=== PATIENT | male | born 2000 | race Caucasian/White ===

== ENCOUNTER 2023-06-20 01:38 | Inpatient (IN) | payer MEDICAID ==
[~2023-06-20] VITALS: Ht 182.9 cm; Wt 95.3 kg
[2023-06-20] VITALS (7 sets, daily range): BP systolic 100–120; BP diastolic 43–61; PULSE 60–99; RESP 14–20; TEMP 97.7–98.2; O2SAT 95–100
[~2023-06-20 01:38] MED LIST: LORazepam 2 MG/ML VIAL IM STA
[2023-06-20 02:51] LABS: BASOPHILS % (AUTO) 0.7 % (0.0-2.0); EOSINOPHILS # (AUTO) 0.1 K/uL (0-0.4); EOSINOPHILS % (AUTO) 1.8 % (0.0-4.0); HEMOGLOBIN 10.7 g/dL (12.0-18.0); LYMPHOCYTES # (AUTO) 1.9 K/uL (2.0-11.5); LYMPHOCYTES % (AUTO) 26.6 % (20.5-51.1); MEAN CORPUSCULAR HEMOGLOBIN 22 pg (27-31); MEAN CORPUSCULAR HGB CONC 32 g/dL (33-37); MEAN CORPUSCULAR VOLUME 68.3 fL (80-94); MONOCYTES # (AUTO) 0.8 K/uL (0.8-1.0); MONOCYTES % (AUTO) 11.4 % (1.7-9.3); NEUTROPHILS # (AUTO) 4.2 K/uL (1.8-7.7); NEUTROPHILS % (AUTO) 59.5 % (42.2-75.2); PLATELET COUNT (AUTO) 256 K/uL (140-450); RED BLOOD CELL COUNT(AUTO) 4.99 MIL/uL (4.20-6.10)
[2023-06-20 03:11] LABS: ANION GAP 14.4 (8-16); CALCIUM 8.9 mg/dL (8.5-10.1); CARBON DIOXIDE 26.1 mmol/L (21-32); CREATININE 1.1 mg/dL (0.6-1.3); POTASSIUM 3.5 mmol/L (3.5-5.1)
[2023-06-20 03:18] LABS: ALCOHOL, BLOOD < 3 mg/dL (<10)
[2023-06-20] MEDS ORDERED: NACL 0.9% 2,000 ML IV ONE (03:45)
[2023-06-20 03:47] LABS: ACETAMINOPHEN < 0.5 ug/ml (10-30); SALICYLATE < 2.8 mg/dL (2.8-20.0)
[2023-06-20] MEDS ORDERED: AMMONIA AROMATIC 1 INHL INH ONE ×3 (05:39→06:02)
[2023-06-20] MEDS ORDERED: NACL 0.9% 1,000 ML IV ONE (07:30)
[2023-06-20 08:23] LABS: ALBUMIN 3.8 g/dL (3.4-5.0); BILIRUBIN,DIRECT 0.1 mg/dL (0.0-0.3); TOTAL BILIRUBIN 0.2 mg/dL (0.0-1.0); TOTAL PROTEIN, SERUM 7.7 g/dL (6.4-8.2)
[2023-06-20] MEDS ORDERED: LORazepam 2 MG/ML VIAL IVP SCH (09:30)
[2023-06-20] MEDS ORDERED: levETIRAcetam 1,000 MG in NACL 0.9% 100 ML IV ONE (09:45)
[2023-06-20] MEDS ORDERED: ACETAMINOPHEN 325 MG TAB PO PRN (12:45)
[2023-06-20] MEDS ORDERED: ONDANSETRON 4 MG/2 ML VIAL IVP PRN (12:45)
[2023-06-20] MEDS: NACL 0.9% 1,000 ML IV SCH (12:45)
[2023-06-20] MEDS ORDERED: POTASSIUM CHLORIDE 10 MEQ TABER PO PRN (12:45)
[2023-06-20] MEDS ORDERED: HYDROcodone/APAP 7.5/325 MG 1 TAB PO PRN (12:45)
[2023-06-20] MEDS ORDERED: MAG SULF 2000 MG/WATER PREMIX 50 ML IV PRN (12:45)
[2023-06-20] MEDS ORDERED: LORazepam 2 MG/ML VIAL IVP PRN (12:45)
[2023-06-20 15:12] LABS: AMYLASE 25 U/L (25-115); CHOL/HDL RATIO 2.7 (1-4.5); CHOLESTEROL 145 mg/dL (<200); FREE T4 (FREE THYROXINE) 1.31 ng/dL (0.76-1.46); HDL CHOLESTEROL 54 mg/dL (40-60); LDL (CALC) 73 mg/dL (60-100); LIPASE 85 U/L (73-393); MAGNESIUM 2.1 mg/dL (1.8-2.4); PHOSPHORUS 4.6 mg/dL (2.5-4.9); THYROID STIMULATING HORMONE 1.99 uIU/mL (0.34-3.74); TRIGLYCERIDES 92 mg/dL (30-150)
[2023-06-20 19:08] LABS: LACTIC ACID 1.6 mmol/L (0.4-2.0)
[2023-06-20 19:21] LABS: APPEARANCE,URINE CLEAR (CLEAR); BILIRUBIN,URINE NEGATIVE (NEGATIVE); BLOOD, URINE NEGATIVE (NEGATIVE); COLOR,URINE YELLOW (YELLOW); LEUKOCYTE ESTERASE ,URINE NEGATIVE (NEGATIVE); NITRITE, URINE NEGATIVE (NEGATIVE); PROTEIN,URINE NEGATIVE (NEGATIVE); UGLUCOSE NEGATIVE (NEGATIVE); UROBILINOGEN,URINE 0.2 EU/dL (0.2 - 1)
[2023-06-20 19:27] LABS: INR 1.05 (0.8-1.2); PARTIAL THROMBOPLASTIN TIME 25.7 secs (22-35.6)
[2023-06-20 19:29] LABS: AMPHETAMINE, URINE NEGATIVE ng/ml (NEG <=1000); BARBITURATE, URINE NEGATIVE ng/ml (NEG <=200); BENZODIAZEPINE, URINE POSITIVE ng/mL (NEG <=200); CANNABINOID, URINE NEGATIVE ng/mL (NEG <=50); COCAINE, URINE NEGATIVE ng/mL (NEG <=300); OPIATE, URINE NEGATIVE ng/mL (NEG <=2000); PHENCYCLIDINE SCREEN,URINE NEGATIVE ng/mL (NEG <=25)
[2023-06-20] MEDS: levETIRAcetam 500 MG in NACL 0.9% 100 ML IV SCH (20:19)
[2023-06-20] MEDS: DOCUSATE SODIUM 100 MG GELCAP PO SCH (20:21)
[2023-06-21] VITALS (7 sets, daily range): BP systolic 109–123; BP diastolic 46–76; PULSE 49–78; RESP 17–18; TEMP 97–98; O2SAT 96–100
[2023-06-21] MEDS: NACL 0.9% 1,000 ML IV SCH (08:45)
[2023-06-21] MEDS: levETIRAcetam 500 MG in NACL 0.9% 100 ML IV SCH (08:58)
[2023-06-21] MEDS: DOCUSATE SODIUM 100 MG GELCAP PO SCH (08:58)
[2023-06-21] MEDS ORDERED: PANTOPRAZOLE 40 MG INJ VIAL IVP SCH (09:00)
[2023-06-21 13:55] LABS: ANION GAP 12.7 (8-16); CALCIUM 9.2 mg/dL (8.5-10.1); POTASSIUM 3.7 mmol/L (3.5-5.1)
[2023-06-21 13:57] LABS: BASOPHILS % (AUTO) 0.7 % (0.0-2.0); EOSINOPHILS # (AUTO) 0.2 K/uL (0-0.4); EOSINOPHILS % (AUTO) 2.5 % (0.0-4.0); HEMOGLOBIN 10.8 g/dL (12.0-18.0); LYMPHOCYTES % (AUTO) 14.7 % (20.5-51.1); MEAN CORPUSCULAR HEMOGLOBIN 22 pg (27-31); MEAN CORPUSCULAR HGB CONC 32 g/dL (33-37); MEAN CORPUSCULAR VOLUME 67.9 fL (80-94); MONOCYTES # (AUTO) 0.6 K/uL (0.8-1.0); MONOCYTES % (AUTO) 8.1 % (1.7-9.3); NEUTROPHILS # (AUTO) 5.1 K/uL (1.8-7.7); PLATELET COUNT (AUTO) 248 K/uL (140-450); RED BLOOD CELL COUNT(AUTO) 5.02 MIL/uL (4.20-6.10); RED CELL DISTRIBUTION WIDTH 17.9 % (11.6-13.7); WHITE BLOOD COUNT (AUTO) 6.9 K/uL (4.8-10.8)
[2023-06-21] MEDS ORDERED: KEP500 PO (13:58)
[2023-06-21 14:00] LABS: MAGNESIUM 1.9 mg/dL (1.8-2.4); PHOSPHORUS 2.8 mg/dL (2.5-4.9)
[2023-06-21] MEDS ORDERED: LACT-85 PO (14:02)
[2023-06-21] MEDS ORDERED: LACTULOSE 20 GM/30 ML UDC PO SCH (14:04)
== END 2023-06-21 16:20 | disposition home or self-care (01) | DRG 53 ==
LOC: MED 01:38 → EDBD 07:29 → MTU 07:29
PROC: 5A09357 Assistance with Respiratory Ventilation, Less than 24 Consecutive Hours, Continuous Positive Airway Pressure (ICD-10-PCS; principal; 2023-06-20)
DX: G40.409 Other generalized epilepsy and epileptic syndromes, not intractable, without status epilepticus (principal); J96.00 Acute respiratory failure, unspecified whether with hypoxia or hypercapnia; G04.81 Other encephalitis and encephalomyelitis; K76.82 Hepatic encephalopathy; D50.9 Iron deficiency anemia, unspecified; F43.10 Post-traumatic stress disorder, unspecified; Z88.8 Allergy status to other drugs, medicaments and biological substances; Z79.899 Other long term (current) drug therapy
CPT/HCPCS: 36415; 70450; 71045; 80048; 80076; 80305; 81003; 82140; 82150; 83036; 83605; 83690; 83735; 83880; 84100; 84146; 84439; 84443; 84484; 85025; 85610; 85730; 87081; 93005; 94660; 96360; 96372; 99285; C9113; G0480; G0482; J1953; J2060; Q0092

== ENCOUNTER 2023-08-24 01:30 | Emergency (ER) | payer MEDICAID ==
[~2023-08-24] VITALS: Ht 175.3 cm; Wt 102.5 kg
[~2023-08-24 01:30] MED LIST changes: +KEP500 PO; +LACT-85 PO; -LORazepam 2 MG/ML VIAL IM STA
[2023-08-24 01:43] VITALS: BP 123/68; PULSE 94; RESP 20; TEMP 98; O2SAT 98
[2023-08-24 03:03] VITALS: O2SAT 98
[2023-08-24 04:07] LABS: BASOPHILS # (AUTO) 0.1 K/uL (0.00-0.22); BASOPHILS % (AUTO) 0.7 % (0.0-2.0); EOSINOPHILS # (AUTO) 0.3 K/uL (0-0.4); EOSINOPHILS % (AUTO) 3.3 % (0.0-4.0); HEMATOCRIT 34.3 % (36-52); HEMOGLOBIN 10.6 g/dL (12.0-18.0); LYMPHOCYTES % (AUTO) 22.3 % (20.5-51.1); MEAN CORPUSCULAR HEMOGLOBIN 22 pg (27-31); MEAN CORPUSCULAR HGB CONC 31 g/dL (33-37); MEAN CORPUSCULAR VOLUME 72.5 fL (80-94); MONOCYTES # (AUTO) 1.1 K/uL (0.8-1.0); MONOCYTES % (AUTO) 12.1 % (1.7-9.3); NEUTROPHILS # (AUTO) 5.7 K/uL (1.8-7.7); NEUTROPHILS % (AUTO) 61.6 % (42.2-75.2); PLATELET COUNT (AUTO) 283 K/uL (140-450); RED BLOOD CELL COUNT(AUTO) 4.74 MIL/uL (4.20-6.10); RED CELL DISTRIBUTION WIDTH 18.9 % (11.6-13.7); WHITE BLOOD COUNT (AUTO) 9.2 K/uL (4.8-10.8)
[2023-08-24 04:09] LABS: ANION GAP 13.4 (8-16); CALCIUM 8.8 mg/dL (8.5-10.1); CARBON DIOXIDE 25.8 mmol/L (21-32); CREATININE 0.9 mg/dL (0.6-1.3); POTASSIUM 4.2 mmol/L (3.5-5.1)
[2023-08-24 06:16] LABS: AMPHETAMINE, URINE NEGATIVE ng/ml (NEG <=1000); BARBITURATE, URINE POSITIVE ng/ml (NEG <=200); BENZODIAZEPINE, URINE POSITIVE ng/mL (NEG <=200); CANNABINOID, URINE NEGATIVE ng/mL (NEG <=50); COCAINE, URINE NEGATIVE ng/mL (NEG <=300); OPIATE, URINE NEGATIVE ng/mL (NEG <=2000); PHENCYCLIDINE SCREEN,URINE NEGATIVE ng/mL (NEG <=25)
== END 2023-08-24 06:45 | disposition home or self-care (01) ==
LOC: MED 01:30
DX: S70.12XA Contusion of left thigh, initial encounter (principal); R56.9 Unspecified convulsions; Z79.899 Other long term (current) drug therapy; Z88.8 Allergy status to other drugs, medicaments and biological substances; X58.XXXA Exposure to other specified factors, initial encounter; Y92.89 Other specified places as the place of occurrence of the external cause; Y93.89 Activity, other specified; Y99.8 Other external cause status
CPT/HCPCS: 36415; 70450; 80048; 80305; 85025; 99284; G0482

== ENCOUNTER 2023-09-09 13:38 | Emergency (ER) | payer MEDICAID ==
[~2023-09-09] VITALS: Ht 177.8 cm; Wt 105.2 kg
[2023-09-09 14:06] VITALS: BP 113/55; PULSE 79; RESP 17; TEMP 97.4; O2SAT 98
[2023-09-09 17:22] LABS: INR 1.02 (0.8-1.2); PARTIAL THROMBOPLASTIN TIME 26.1 secs (22-35.6); PROTHROMBIN TIME 10.7 secs (10.8-13.4)
[2023-09-09 17:26] LABS: ALANINE AMINOTRANSFERASE 57 U/L (12-78); ALBUMIN 3.8 g/dL (3.4-5.0); ALKALINE PHOSPHATASE 92 U/L (50-136); ASPARTATE AMINOTRANSFERASE 28 U/L (15-37); CHLORIDE 102 mmol/L (98-107); CREATININE 0.9 mg/dL (0.6-1.3); GFR ARICAN-AMERICAN 137 mL/min (>90); GFR NON ARICAN-AMERICAN 113 mL/min (>90); GLUCOSE 83 mg/dL (74-106); SODIUM SERUM 137 mmol/L (136-145); TOTAL BILIRUBIN 0.1 mg/dL (0.0-1.0); TOTAL PROTEIN, SERUM 7.9 g/dL (6.4-8.2); UREA NITROGEN, BLOOD 9 mg/dL (7-18)
[2023-09-09 18:38] LABS: BASOPHILS % (AUTO) 0.6 % (0.0-2.0); EOSINOPHILS # (AUTO) 0.2 K/uL (0-0.4); EOSINOPHILS % (AUTO) 2.5 % (0.0-4.0); HEMATOCRIT 37.3 % (36-52); HEMOGLOBIN 11.9 g/dL (12.0-18.0); LYMPHOCYTES # (AUTO) 1.8 K/uL (2.0-11.5); LYMPHOCYTES % (AUTO) 22.2 % (20.5-51.1); MEAN CORPUSCULAR HEMOGLOBIN 23 pg (27-31); MEAN CORPUSCULAR HGB CONC 32 g/dL (33-37); MEAN CORPUSCULAR VOLUME 70.6 fL (80-94); MONOCYTES % (AUTO) 11.9 % (1.7-9.3); NEUTROPHILS # (AUTO) 5.1 K/uL (1.8-7.7); NEUTROPHILS % (AUTO) 62.8 % (42.2-75.2); PLATELET COUNT (AUTO) 300 K/uL (140-450); RED BLOOD CELL COUNT(AUTO) 5.29 MIL/uL (4.20-6.10); RED CELL DISTRIBUTION WIDTH 17.4 % (11.6-13.7); WHITE BLOOD COUNT (AUTO) 8.1 K/uL (4.8-10.8)
[2023-09-09 22:00] LABS: APPEARANCE,URINE CLEAR (CLEAR); BILIRUBIN,URINE NEGATIVE (NEGATIVE); BLOOD, URINE NEGATIVE (NEGATIVE); COLOR,URINE YELLOW (YELLOW); LEUKOCYTE ESTERASE ,URINE NEGATIVE (NEGATIVE); NITRITE, URINE NEGATIVE (NEGATIVE); PH,URINE 7.5 (5.0-9.0); PROTEIN,URINE NEGATIVE (NEGATIVE); UGLUCOSE NEGATIVE (NEGATIVE); UROBILINOGEN,URINE 0.2 EU/dL (0.2 - 1)
[2023-09-09] MEDS ORDERED: ONDANSETRON 4 MG/2 ML VIAL IVP ONE (23:15)
[2023-09-09] MEDS ORDERED: NACL 0.9% 1,000 ML IV ONE (23:15)
[2023-09-10 01:43] VITALS: PULSE 62; O2SAT 99
[2023-09-10 05:54] VITALS: BP 90/60; PULSE 63; RESP 18; TEMP 97.2; O2SAT 99
== END 2023-09-10 05:00 | disposition short-term general hospital (02) ==
LOC: MED 13:38
DX: G04.81 Other encephalitis and encephalomyelitis (principal); R53.1 Weakness; Z86.69 Personal history of other diseases of the nervous system and sense organs; Z79.899 Other long term (current) drug therapy; Z88.8 Allergy status to other drugs, medicaments and biological substances
CPT/HCPCS: 36415; 70450; 71045; 80053; 81003; 82948; 84484; 85025; 85610; 85730; 86886; 86900; 86901; 93005; 96360; 99285; J7030